=== PATIENT | female | born 1995 | race African-American/Black ===

== ENCOUNTER 2020-02-26 13:34 | Emergency (ER) | payer OTHER, MEDICAID ==
[~2020-02-26] VITALS: Ht 167.6 cm; Wt 59.0 kg
[~2020-02-26 13:34] MED LIST: AMOXICILLIN875 MG PO; FLAGYL500 MG PO; NAPROSYN500 MG PO; NORCO 5-325 TA1 EACH PO; PRENATAL
[2020-02-26 14:18] LABS: URINE BILIRUBIN NEGATIVE (Negative); URINE BLOOD TRACE (Negative); URINE CLARITY CLEAR; URINE COLOR YELLOW; URINE GLUCOSE-RANDOM NEGATIVE (Negative); URINE KETONES 2+ (Negative); URINE LEUKOCYTES-REFLEX NEGATIVE (Negative); URINE NITRITE-REFLEX NEGATIVE (Negative); URINE PROTEIN TRACE (Negative); URINE SPECIFIC GRAVITY 1.025 (1.005-1.030)
[2020-02-26 14:54] LABS: ABSOLUTE BASOPHILS 0.1 thou/uL (0.0-0.2); ABSOLUTE LYMPHOCYTES 1.7 thou/uL (0.8-5.3); ABSOLUTE MONOCYTES 0.5 thou/uL (0.0-1.2); ABSOLUTE NEUTROPHILS 4.3 thou/uL (1.6-8.1); BASOPHILS 0.8 %; EOSINOPHILS 0.4 %; HEMATOCRIT 37.3 % (37.0-47.0); HEMOGLOBIN 12.5 gm/dL (12.0-15.0); LYMPHOCYTES 25.9 %; MCH 30.8 pg (26.0-34.0); MCHC 33.6 g/dL (28.0-37.0); MCV 91.7 fL (80.0-100.0); MONOCYTES 7.3 %; MPV 8.1 fl. (7.2-11.1); NUCLEATED RBCS 0 /100WBC; PLATELET COUNT* 236 thou/uL (150-400); POLYS 65.6 %; RBC 4.06 mil/uL (4.20-5.00); RDW-CV 12.9 % (10.5-14.5); WBC 6.6 thou/uL (4.0-11.0)
[2020-02-26 15:03] LABS: CALCIUM 9.5 mg/dL (8.5-10.1); CREATININE 0.8 mg/dL (0.6-1.3); POTASSIUM 3.4 mmol/L (3.5-5.1)
[2020-02-26 15:08] LABS: ALBUMIN 4.3 g/dL (3.4-5.0); TOTAL BILIRUBIN 0.7 mg/dL (<0.1-1.0); TOTAL PROTEIN 7.7 g/dL (6.4-8.2)
[2020-02-26] MEDS ORDERED: TRINATE TABLET1 EACH PO (16:10)
[2020-02-26] MEDS ORDERED: REGLAN 10 MG TA10 MG PO (16:10)
[2020-02-26 18:13] VITALS: BP 111/76
== END 2020-02-26 18:15 | disposition home or self-care (01) ==
LOC: M.ERS 13:34
PROVIDERS: Nurse Practitioner Family
DX: O21.8 Other vomiting complicating pregnancy (principal); Z3A.01 Less than 8 weeks gestation of pregnancy